=== PATIENT | male | born 1940 | race Hispanic/Latino ===

== ENCOUNTER 2021-07-09 12:27 | Emergency (ER) | payer SELFPAY ==
[2021-07-09] MEDS ORDERED: methylPREDNISolone Sod Succinate 125 MG/2 ML INJ IV ONE (12:44)
[2021-07-09] MEDS ORDERED: SODIUM CHLORIDE 0.9% 1000 ML 1,000 ML IV ONE (12:44)
[2021-07-09] MEDS ORDERED: IPRATROPIUM 0.02% NEBU 2.5 ML IH ONE (12:44)
[2021-07-09] MEDS ORDERED: ALBUTEROL 2.5 MG/3 ML NEBU IH ONE (12:44)
[2021-07-09 13:33] LABS: Mean Corpuscular HGB Conc 33 % (32-34); Mean Corpuscular Volume 89 fl (84-94); Platelet Count 183 K/mm3 (140-440); Red Blood Count 4.86 M/mm3 (3.65-5.03); Red Cell Distribution Width 16.1 % (13.2-15.2)
--- NOTE | 2021-07-09 13:37 | XRay Report ---
CHEST 1 VIEW INDICATION: Dyspnea. COMPARISON: 09/03/2019 FINDINGS: Support devices: None. Heart: Heart size is within normal limits Lungs/Pleura: The lungs are hyperinflated. Mild underlying interstitial edema is suspected. There is patchy infiltration throughout the right upper lobe. No pleural effusion or pneumothorax. Additional findings: None. IMPRESSION: New right upper lobe infiltrate which probably represents pneumonia. Signer Name: Duke Marcano Jr, MD Signed: 07/09/2021 1:33 PM Workstation Name: [id number]
[2021-07-09 13:40] LABS: INR 1.21 (0.87-1.13)
[2021-07-09 13:53] LABS: Creatine Kinase MB 2.8 ng/mL (0.0-4.0)
[2021-07-09 13:54] LABS: Alanine Aminotransferase 8 units/L (7-56); Albumin 3.8 g/dL (3.9-5); BUN/Creatinine Ratio 23; Blood Urea Nitrogen 18 mg/dL (9-20); Calcium 8.7 mg/dL (8.4-10.2); Hemolysis Index 4
[2021-07-09] MEDS ORDERED: cefTRIAXone/NS 1 GM/50 ML 1 GM/50 ML BAG IV ONE (13:58)
[2021-07-09 14:15] LABS: Band Neutrophils # (Manual) 2.2 K/mm3; Basophils % (Manual) 0 % (0.0-1.8); Eosinophils % (Manual) 0 % (0.0-4.3); Total Cells Counted 100
[2021-07-09 14:16] LABS: Platelet Estimate Consistent w Auto; RBC Morphology Normal
--- NOTE | 2021-07-09 16:46 | Emergency Department Report ---
ED Shortness of Breath HPI - General Chief Complaint: Dyspnea/Respdistress Stated Complaint: AMS/LEANDRO Time Seen by Provider: 07/09/21 12:39 Source: patient, EMS Mode of arrival: Stretcher Limitations: No Limitations, Altered Mental Status - History of Present Illness Initial Comments: PT ARRIVING FROM HOME FOR LEANDRO/SOB X30 MIN. SM 125MG, ALBUTEROL 5MG EN ROUTE Complaint: shortness of breath -: Gradual, days(s) Severity: moderate Consistency: intermittent Improves With: oxygen, bronchodilators, medication Known History Of: COPD, asthma Associated Symptoms: chest pain - Related Data Home Oxygen Therapy: No Previous Rx's Medication Instructions Recorded Last Taken Type Albuterol Mdi (or & Nicu Only) 2 puff IH QID PRN #8.5 gram 09/04/19 Unknown Rx [ProAir HFA Inhaler] Fluticasone/Salmeterol [Advair 1 puff IH BID #1 disk.w.dev 09/04/19 Unknown Rx Diskus 250-50 mcg] Folic Acid 1 mg PO DAILY #30 tablet 09/04/19 Unknown Rx Multivitamin [Multiple Vitamins] 1 each PO DAILY #30 tablet 09/04/19 Unknown Rx Prednisone [predniSONE 5 mg (6-Day 5 mg PO .TAPER #1 tab.ds.pk 09/04/19 Unknown Rx Pack, 21 Tabs)] Thiamine [Vitamin B-1] 100 mg PO QDAY #30 tablet 09/04/19 Unknown Rx levoFLOXacin [Levaquin TAB] 500 mg PO QDAY #10 tablet 07/09/21 Unknown Rx methylPREDNISolone [Medrol 4MG 4 mg PO UNK #1 07/09/21 Unknown Rx DOSEPAK (21 tabs)] Allergies Allergy/AdvReac Type Severity Reaction Status Date / Time No Known Allergies Allergy Verified 07/09/21 12:29 ED Review of Systems ROS: Stated complaint: AMS/LEANDRO Other details as noted in HPI Constitutional: denies: chills, fever Eyes: denies: eye pain, eye discharge, vision change ENT: denies: ear pain, throat pain Respiratory: denies: cough, shortness of breath, wheezing Cardiovascular: denies: chest pain, palpitations Endocrine: no symptoms reported Gastrointestinal: denies: abdominal pain, nausea, diarrhea Genitourinary: denies: urgency, dysuria Musculoskeletal: denies: back pain, joint swelling, arthralgia Skin: denies: rash, lesions Neurological: denies: headache, weakness, paresthesias Psychiatric: denies: anxiety, depression Hematological/Lymphatic: denies: easy bleeding, easy bruising ED Past Medical Hx - Past Medical History Hx Hypertension: Yes Hx CVA: No Hx Heart Attack/AMI: No Hx Seizures: No Hx COPD: Yes - Social History Smoking Status: Current Every Day Smoker - Medications Home Medications: Home Medications Medication Instructions Recorded Confirmed Last Taken Type Albuterol Mdi (or & Nicu Only) 2 puff IH QID PRN #8.5 gram 09/04/19 Unknown Rx [ProAir HFA Inhaler] Fluticasone/Salmeterol [Advair 1 puff IH BID #1 disk.w.dev 09/04/19 Unknown Rx Diskus 250-50 mcg] Folic Acid 1 mg PO DAILY #30 tablet 09/04/19 Unknown Rx Multivitamin [Multiple Vitamins] 1 each PO DAILY #30 tablet 09/04/19 Unknown Rx Prednisone [predniSONE 5 mg (6-Day 5 mg PO .TAPER #1 tab.ds.pk 09/04/19 Unknown Rx Pack, 21 Tabs)] Thiamine [Vitamin B-1] 100 mg PO QDAY #30 tablet 09/04/19 Unknown Rx levoFLOXacin [Levaquin TAB] 500 mg PO QDAY #10 tablet 07/09/21 Unknown Rx methylPREDNISolone [Medrol 4MG 4 mg PO UNK #1 07/09/21 Unknown Rx DOSEPAK (21 tabs)] ED Physical Exam - General Limitations: Altered Mental Status General appearance: alert, other (unkempt ) - Head Head exam: Present: atraumatic, normocephalic - Eye Eye exam: Present: normal appearance - ENT ENT exam: Present: mucous membranes moist - Neck Neck exam: Present: normal inspection - Respiratory Respiratory exam: Present: wheezes, rales, rhonchi, decreased breath sounds. Absent: respiratory distress - Cardiovascular Cardiovascular Exam: Present: regular rate, normal rhythm. Absent: systolic murmur, diastolic murmur, rubs, gallop - GI/Abdominal GI/Abdominal exam: Present: soft, normal bowel sounds - Rectal Rectal exam: Present: deferred - Extremities Exam Extremities exam: Present: normal inspection - Back Exam Back exam: Present: normal inspection - Neurological Exam Neurological exam: Present: alert, oriented X3 - Psychiatric Psychiatric exam: Present: normal affect, normal mood - Skin Skin exam: Present: warm, dry, intact, normal color. Absent: rash ED Medical Decision Making - Lab Data Result diagrams: 07/09/21 13:08 07/09/21 13:08 - Radiology Data Radiology results: report reviewed, image reviewed - Medical Decision Making sepsis work up , rt steriods and abx given , positive sepsis, pt refused admission statinghe wants to go home, explained the risks and he seems understanding risks Critical care attestation.: If time is entered above; I have spent that time in minutes in the direct care of this critically ill patient, excluding procedure time. ED Disposition Clinical Impression: SOB (shortness of breath), COPD (chronic obstructive pulmonary disease), Pneumonia, Sepsis Disposition: 07 LEFT AGAINST MEDICAL ADVICE Is pt being admited?: No Does the pt Need Aspirin: No Condition: Stable Instructions: Chronic Obstructive Pulmonary Disease (ED), Bacterial Pneumonia (ED), Asthma, Adult, COPD and Physical Activity, Community-Acquired Pneumonia, Adult, [id number] Referrals: PRIMARY CARE, [Primary Care Provider] - 3-5 Days
== END 2021-07-09 16:56 | disposition left against medical advice (07) ==
LOC: ED 12:27
DX: R06.02 Shortness of breath (principal); J44.9 Chronic obstructive pulmonary disease, unspecified; J18.9 Pneumonia, unspecified organism; A41.9 Sepsis, unspecified organism
CPT/HCPCS: 36415; 71045; 80053; 82140; 82550; 82553; 83690; 83880; 84484; 85007; 85025; 85610; 96361; 96365; 96375; 99284; J0696; J2930; J7030; Q0162